=== PATIENT | female | born 1980 | race Two or more races ===

== ENCOUNTER 2019-01-24 20:27 | Emergency (ER) | payer MEDICAID, OTHER ==
--- NOTE | 2019-01-24 21:04 | ER Document Report ---
ED Medical Screen (RME) - General Chief Complaint: Abdominal Pain Stated Complaint: ABDOMINAL PAIN Time Seen by Provider: 01/24/19 21:00 Primary Care Provider: ADDIE JACKSON MD [Primary Care Provider] - Follow up as needed Mode of Arrival: Ambulatory Information source: Patient Notes: 38-year-old female presented to ED for complaint of right lower quadrant abdominal pain but no nausea or vomiting or fever. She states her last menstrual period was January 01. She states she woke up this morning she had the pain and is been going off and on. She states she has no past medical history of abdominal pain she she states she does have a history of anxiety depression insomnia and hip surgery. She states she does use a vapor cigarette and drinks socially. She is alert oriented respirations regular and unlabored speaking in full sentences walks with even steady gait. I have greeted and performed a rapid initial assessment of this patient. A comprehensive ED assessment and evaluation of the patient, analysis of test results and completion of medical decision making process will be conducted by an additional ED providers. TRAVEL OUTSIDE OF THE [place] IN LAST 30 DAYS: No - Related Data Allergies/Adverse Reactions: No Known Allergies Allergy (Verified 01/24/19 20:54) Past Medical History - Social History Frequency of alcohol use: Occasional Physical Exam - Vital signs Vitals: Temp Pulse Resp BP Pulse Ox 98.4 F 96 18 121/78 100 01/24/19 20:45 01/24/19 20:45 01/24/19 20:45 01/24/19 20:45 01/24/19 20:45 Course - Vital Signs Vital signs: Temp Pulse Resp BP Pulse Ox 98.4 F 96 18 121/78 100 01/24/19 20:45 01/24/19 20:45 01/24/19 20:45 01/24/19 20:45 01/24/19 20:45 Doctor's Discharge - Discharge Referrals: ADDIE JACKSON MD [Primary Care Provider] - Follow up as needed
[2019-01-24 21:51] LABS: ABSOLUTE EOSINOPHILS # (AUTO) 0.1 10^3/uL (0.0-0.6); ABSOLUTE LYMPHOCYTES (AUTO) 2.2 10^3/uL (0.5-4.7); ABSOLUTE MONOCYTES (AUTO) 0.6 10^3/uL (0.1-1.4); ABSOLUTE NEUT (AUTO) 5.3 10^3/uL (1.7-8.2); BASOPHILS % (AUTO) 0.5 % (0-2); EOSINOPHILS % (AUTO) 1.5 % (0-6); HEMATOCRIT 38.8 % (36.0-47.0); HEMOGLOBIN 13.1 g/dL (12.0-15.5); LYMPHOCYTES % (AUTO) 26.8 % (13-45); MEAN CORPUSCULAR HEMOGLOBIN 30.8 pg (27.0-33.4); MEAN CORPUSCULAR HGB CONC 33.8 g/dL (32.0-36.0); MEAN CORPUSCULAR VOLUME 91 fl (80-97); MONOCYTES % (AUTO) 7.1 % (3-13); PLATELET COUNT 344 10^3/uL (150-450); RED BLOOD COUNT 4.27 10^6/uL (3.72-5.28); RED CELL DISTRIBUTION WIDTH 13.1 % (11.5-14.0); SEGMENTED NEUTROPHILS % (AUTO) 64.1 % (42-78); TOTAL CELLS COUNTED % (AUTO) 100 %; WHITE BLOOD COUNT 8.3 10^3/uL (4.0-10.5)
[2019-01-24 22:05] LABS: APPEARANCE,URINE SLIGHTLY-CLOUDY; BILIRUBIN,URINE NEGATIVE (NEGATIVE); COLOR,URINE YELLOW; GLUCOSE, URINE NEGATIVE (NEGATIVE); KETONES,URINE NEGATIVE (NEGATIVE); LEUKOCYTE ESTERASE,URINE LARGE (NEGATIVE); NITRITE,URINE NEGATIVE (NEGATIVE); PROTEIN,URINE NEGATIVE (NEGATIVE); URINE SPECIFIC GRAVITY 1.018; UROBILINOGEN,URINE NEGATIVE mg/dL (<2.0)
[2019-01-24 22:13] LABS: ALBUMIN 4.2 g/dL (3.5-5.0); ALKALINE PHOSPHATASE 67 U/L (38-126); ANION GAP 8 (5-19); ASPARTATE AMINO TRANSFERASE 24 U/L (14-36); BILIRUBIN,DIRECT 0.1 mg/dL (0.0-0.4); BILIRUBIN,TOTAL 0.3 mg/dL (0.2-1.3); BLOOD UREA NITROGEN 17 mg/dL (7-20); CALCIUM 10.2 mg/dL (8.4-10.2); CARBON DIOXIDE 25 mmol/L (22-30); CHLORIDE 105 mmol/L (98-107); GLUCOSE 99 mg/dL (75-110); POTASSIUM 4.4 mmol/L (3.6-5.0); TOTAL PROTEIN 8.2 g/dL (6.3-8.2)
--- NOTE | 2019-01-24 22:47 | ER Document Report ---
ED General - General Chief Complaint: Abdominal Pain Stated Complaint: ABDOMINAL PAIN Time Seen by Provider: 01/24/19 21:00 Primary Care Provider: ADDIE JACKSON MD [Primary Care Provider] - Follow up in 3-5 days Mode of Arrival: Ambulatory Information source: Patient Notes: 38-year-old female presents emergency department with complaints of mid abdominal pain that started earlier today. Reports she woke up this morning pain and the pain has been going on and off. Denies fever vomiting diarrhea. Denies trauma. Denies pain with void. Patient was able to eat lunch earlier today. TRAVEL OUTSIDE OF THE [place] IN LAST 30 DAYS: No - HPI Onset: This morning Onset/Duration: Sudden, Waxing and waning Quality of pain: Achy, Cramping Associated symptoms: None Exacerbated by: Denies Relieved by: Denies Similar symptoms previously: No Recently seen / treated by doctor: No - Related Data Allergies/Adverse Reactions: No Known Allergies Allergy (Verified 01/24/19 20:54) Past Medical History - General Information source: Patient Last Menstrual Period: dec - Social History Smoking Status: Never Smoker Cigarette use (# per day): No Frequency of alcohol use: Occasional Lives with: Family Family History: None Patient has suicidal ideation: No Patient has homicidal ideation: No Psychiatric Medical History: Reports: Hx Anxiety, Hx Depression Past Surgical History: Reports: Hx Orthopedic Surgery - Hip surgery Review of Systems - Review of Systems Notes: Review HPI for review of systems., All other systems negative Physical Exam - Vital signs Vitals: Temp Pulse Resp BP Pulse Ox 98.4 F 96 18 121/78 100 01/24/19 20:45 01/24/19 20:45 01/24/19 20:45 01/24/19 20:45 01/24/19 20:45 - Notes Notes: PHYSICAL EXAMINATION: GENERAL: Well-appearing and in no acute distress HEAD: Atraumatic, normocephalic. EYES: extraocular movements intact, sclera anicteric, conjunctiva are normal. ENT: nares patent, Moist mucous membranes. NECK: Normal range of motion, supple without lymphadenopathy LUNGS: CTAB and equal. No wheezes rales or rhonchi. HEART: Regular rate and rhythm without murmurs ABDOMEN: Soft,epigastric, periumbilical tenderness. No guarding, no rebound EXTREMITIES: Normal range of motion, NEUROLOGICAL: Cranial nerves grossly intact. PSYCH: Normal mood, normal affect. SKIN: Warm, Dry, normal turgor, no rashes or lesions noted Course - Re-evaluation Re-evalutation: 01/25/19 05:13 38-year-old female with complaints of periumbilical right-sided abdominal pain that started this morning. Reports pain is coming on. Denies fever nausea vomiting diarrhea. Denies pain with void. Denies vaginal discharge. Has been able to eat without problems. Labs unremarkable. Patient was instructed to monitor pain follow-up with primary care provider within the week. She was also instructed to return the emergency department for severe pain concerns. She ve rbalized understanding to all instructions. 01/24/19 21:15 01/24/19 21:15 MCV 91 fl (80-97) 01/24/19 21:15 MCH 30.8 pg (27.0-33.4) 01/24/19 21:15 MCHC 33.8 g/dL (32.0-36.0) 01/24/19 21:15 RDW 13.1 % (11.5-14.0) 01/24/19 21:15 Seg Neutrophils % 64.1 % (42-78) 01/24/19 21:15 Chloride 105 mmol/L (98-107) 01/24/19 21:15 Carbon Dioxide 25 mmol/L (22-30) 01/24/19 21:15 Anion Gap 8 (5-19) 01/24/19 21:15 Est GFR ( Amer) > 60 (>60) 01/24/19 21:15 Glucose 99 mg/dL (75-110) 01/24/19 21:15 Calcium 10.2 mg/dL (8.4-10.2) 01/24/19 21:15 Total Bilirubin 0.3 mg/dL (0.2-1.3) 01/24/19 21:15 AST 24 U/L (14-36) 01/24/19 21:15 Alkaline Phosphatase 67 U/L (38-126) 01/24/19 21:15 Total Protein 8.2 g/dL (6.3-8.2) 01/24/19 21:15 Albumin 4.2 g/dL (3.5-5.0) 01/24/19 21:15 Serum HCG, Qual NEGATIVE (NEGATIVE) 01/24/19 21:15 Urine Color YELLOW 01/24/19 21:15 Urine Appearance SLIGHTLY-CLOUDY 01/24/19 21:15 Urine pH 5.0 (5.0-9.0) 01/24/19 21:15 Ur Specific Frost 1.018 01/24/19 21:15 Urine Protein NEGATIVE mg/dL (NEGATIVE) 01/24/19 21:15 Urine Glucose (UA) NEGATIVE mg/dL (NEGATIVE) 01/24/19 21:15 Urine Ketones NEGATIVE mg/dL (NEGATIVE) 01/24/19 21:15 Urine Blood SMALL (NEGATIVE) H 01/24/19 21:15 Urine Nitrite NEGATIVE (NEGATIVE) 01/24/19 21:15 Ur Leukocyte Esterase LARGE (NEGATIVE) H 01/24/19 21:15 Urine WBC (Auto) 1 /HPF 01/24/19 21:15 Urine RBC (Auto) 1 /HPF 01/24/19 21:15 01/25/19 05:15 - Vital Signs Vital signs: Temp Pulse Resp BP Pulse Ox 98.2 F 96 16 120/76 100 01/24/19 23:04 01/24/19 20:45 01/24/19 23:04 01/24/19 23:04 01/24/19 20:45 - Laboratory Result Diagrams: 01/24/19 21:15 01/24/19 21:15 Laboratory results interpreted by me: 01/24/19 21:15 Urine Blood SMALL H Ur Leukocyte Esterase LARGE H Discharge - Discharge Clinical Impression: Abdominal pain Qualifiers: Abdominal location: unspecified location Qualified Code(s): R10.9 - Unspecified abdominal pain Condition: Stable Disposition: HOME, SELF-CARE Instructions: Abdominal Pain ([facility]) Additional Instructions: *You have been evaluated for abdominal pain *Take ibuprofen as indicated *Follow up with a primary care provider within one week for recheck *Return to ED for worsening condition, changes, needs *Return to ED if not better in 24 hours Referrals: ADDIE JACKSON MD [Primary Care Provider] - Follow up in 3-5 days
[2019-01-24 23:06] VITALS: BP 120/76
== END 2019-01-24 23:04 | disposition home or self-care (01) ==
LOC: ER 20:27
DX: R10.33 Periumbilical pain (principal)
CPT/HCPCS: 36415; 80053; 81001; 84703; 85025; 99284